=== PATIENT | female | born 1995 | race African-American/Black ===

== ENCOUNTER 2018-02-06 21:11 | Emergency (ER) | payer OTHER, MEDICAID ==
[~2018-02-06] VITALS: Ht 162.6 cm; Wt 61.0 kg
[2018-02-07] MEDS ORDERED: IBUPROFEN 600MG TABLET PO ONE (00:15)
[2018-02-07 01:42] VITALS: BP 107/67
== END 2018-02-07 02:13 | disposition home or self-care (01) ==
LOC: ER 21:11
DX: R07.89 Other chest pain (principal); F12.90 Cannabis use, unspecified, uncomplicated
CPT/HCPCS: 71045; 81025; 99283

== ENCOUNTER 2018-02-07 11:42 | Emergency (ER) | payer OTHER, MEDICAID ==
[~2018-02-07] VITALS: Ht 162.6 cm; Wt 62.0 kg
[2018-02-07 12:25] LABS: BASOPHILS % 0.4 % (0.0-2.0); EOSINOPHILS % 1.3 % (0.0-5.0); HEMATOCRIT. 38.5 % (36.0-48.0); HEMOGLOBIN. 12.8 g/dL (12.0-16.0); LYMPHOCYTES % 15.2 % (20.0-50.0); MEAN CORPUSCULAR HEMOGLOBIN 29.5 pg (28.0-32.0); MEAN PLATELET VOLUME 8.9 fl (7.4-10.4); MONOCYTES % 6.4 % (2.0-8.0); NEUTROPHILS % 76.7 % (40.0-76.0); PLATELET 180 x1000/uL (130-400); RED BLOOD CELL COUNT 4.33 mill/uL (4.2-5.4); RED CELL DISTRIBUTION WIDTH 14.3 % (11.6-14.6)
[2018-02-07 12:28] LABS: CHLORIDE 107 mEq/L (98-107)
[2018-02-07] MEDS ORDERED: IOHEXOL-300 100 ML BOTTLE ONE (14:41)
[2018-02-07 15:22] VITALS: BP 120/66
== END 2018-02-07 15:24 | disposition home or self-care (01) ==
LOC: ER 11:42
DX: J98.2 Interstitial emphysema (principal); F12.10 Cannabis abuse, uncomplicated
CPT/HCPCS: 36415; 71045; 71260; 80053; 81025; 85025; 99285; Q9967; Z7610

== ENCOUNTER 2018-03-16 01:13 | Emergency (ER) | payer OTHER, MEDICAID ==
[~2018-03-16] VITALS: Ht 162.6 cm; Wt 61.0 kg
[2018-03-16] MEDS ORDERED: BACITRACIN ZINC OINT UDPKT TOP ONE (05:15)
[2018-03-16] MEDS ORDERED: LIDOCAINE HCL 1% 20ML VIAL (Pyxis) INJ MC ONE (05:15)
[2018-03-16] MEDS ORDERED: TETANUS, DIPHTHERIA, PERTUSSIS VAC/PF 0.5ML (>7YR OLD) IM ONE (05:15)
[2018-03-16] MEDS ORDERED: LIDOCAINE HCL/PF 1% 10 MG/ML 30ML VIAL INFIL SCH (05:16)
[2018-03-16 07:41] VITALS: BP 97/61
== END 2018-03-16 07:41 | disposition home or self-care (01) ==
LOC: ER 01:13
DX: S01.111A Laceration without foreign body of right eyelid and periocular area, initial encounter (principal); Y08.89XA Assault by other specified means, initial encounter; Y93.89 Activity, other specified; Y92.89 Other specified places as the place of occurrence of the external cause; Z23 Encounter for immunization
CPT/HCPCS: 12011; 90471; 90715; 99283; J3490

== ENCOUNTER 2018-03-24 12:39 | Emergency (ER) | payer OTHER, MEDICAID ==
[~2018-03-24] VITALS: Ht 162.6 cm; Wt 61.0 kg
[2018-03-24 13:34] VITALS: BP 105/67
== END 2018-03-24 18:29 | disposition home or self-care (01) ==
LOC: ER 13:34
DX: Z48.02 Encounter for removal of sutures (principal); Z48.00 Encounter for change or removal of nonsurgical wound dressing
CPT/HCPCS: 99281; Z7610

== ENCOUNTER 2018-06-23 15:16 | Emergency (ER) | payer OTHER, MEDICAID ==
[~2018-06-23] VITALS: Ht 162.6 cm; Wt 58.0 kg
[2018-06-23 20:21] LABS: BASOPHILS % 1.1 % (0.0-2.0); EOSINOPHILS % 3.3 % (0.0-5.0); HEMATOCRIT. 37.6 % (36.0-48.0); HEMOGLOBIN. 12.5 g/dL (12.0-16.0); LYMPHOCYTES % 46.3 % (20.0-50.0); MEAN CORPUSCULAR HEMOGLOBIN 29.9 pg (28.0-32.0); MEAN CORPUSCULAR VOLUME 90.1 fL (81.0-99.0); MONOCYTES % 7.9 % (2.0-8.0); NEUTROPHILS % 41.4 % (40.0-76.0); PLATELET 203 x1000/uL (130-400); RED BLOOD CELL COUNT 4.18 mill/uL (4.2-5.4); RED CELL DISTRIBUTION WIDTH 14.3 % (11.6-14.6)
[2018-06-23 20:26] LABS: CHLORIDE 106 mEq/L (98-107)
[2018-06-23 21:56] VITALS: BP 104/74
[2018-06-23 22:06] LABS: CLARITY URINE TURBID (CLEAR); COLOR URINE YELLOW (YELLOW); KETONES URINE NEGATIVE (NEGATIVE); LEUKOCYTE ESTERASE URINE NEGATIVE (NEGATIVE); NITRITE URINE NEGATIVE (NEGATIVE); OCCULT BLOOD URINE NEGATIVE (NEGATIVE); PROTEIN URINE NEGATIVE (NEGATIVE); SPECIFIC GRAVITY URINE 1.022 (1.005-1.030)
== END 2018-06-23 21:57 | disposition home or self-care (01) ==
LOC: ER 15:27
DX: R19.7 Diarrhea, unspecified (principal); R10.84 Generalized abdominal pain
CPT/HCPCS: 36415; 80053; 81003; 81025; 83690; 85025; 99284